=== PATIENT | female | born 2000 | race Caucasian/White ===

== ENCOUNTER 2023-09-12 17:29 | Emergency (ER) | payer MEDICAID ==
[~2023-09-12] VITALS: Ht 160 cm; Wt 62.6 kg
[2023-09-12] MEDS ORDERED: ONDA4TAB5 PO (17:52)
[2023-09-12] MEDS ORDERED: ONDANSETRON 4 MG TAB.RAPDIS ONE (17:55)
[2023-09-12] MEDS: ONDANSETRON 4 MG TAB.RAPDIS SL ONE (17:59)
[2023-09-12 18:00] VITALS: BP 133/78; TEMP 98.6; O2SAT 100
[2023-09-12 18:45] LABS: PREGNANCY TEST URINE QUAL NEGATIVE (NEGATIVE)
== END 2023-09-12 18:02 | disposition home or self-care (01) ==
LOC: ER 17:29
DX: R11.2 Nausea with vomiting, unspecified (principal)
CPT/HCPCS: 99283; 84703; Q0162